=== PATIENT | male | born 1980 | race Caucasian/White ===

== ENCOUNTER 2023-09-02 08:29 | Emergency (ER) | payer SELFPAY ==
[~2023-09-02] VITALS: Ht 170.2 cm; Wt 108.9 kg
[2023-09-02 08:37] VITALS: BP 127/75; PULSE 88; RESP 16; TEMP 97.6; O2SAT 97
[2023-09-02] MEDS: KETOROLAC 30 MG/ML VIAL IM ONE (09:52)
[2023-09-02] MEDS: BACITRACIN OINT 500 UNITS/GM PKT TP ONE (09:52)
[2023-09-02] MEDS ORDERED: IBUP-2213 PO (10:12)
[2023-09-02 10:28] VITALS: BP 134/70; PULSE 87; RESP 18; TEMP 97.3; O2SAT 99
== END 2023-09-02 10:25 | disposition home or self-care (01) ==
LOC: MED 08:29
DX: S93.491A Sprain of other ligament of right ankle, initial encounter (principal); S83.8X1A Sprain of other specified parts of right knee, initial encounter; M25.551 Pain in right hip; Z79.899 Other long term (current) drug therapy; X50.1XXA Overexertion from prolonged static or awkward postures, initial encounter; Y93.89 Activity, other specified; Y92.89 Other specified places as the place of occurrence of the external cause; Y99.8 Other external cause status
CPT/HCPCS: 73502; 73562; 73610; 90471; 90715; 96372; 99284; J1885